=== PATIENT | female | born 1960 | race Caucasian/White ===

== ENCOUNTER 2016-12-25 11:10 | Day surgery (SDCO) | payer OTHER ==
[~2016-12-25] VITALS: Ht 155 cm; Wt 84.0 kg
[2016-12-25 12:39] LABS: HCT 38.6 % (37.0-47.0); MCH 26.3 pg (25.0-31.0); MCHC 33.7 g/dL (32.0-36.0); MPV 8.8 fL (6.0-9.5); RBC 4.95 M/uL (4.20-5.40); RDW 14.7 % (11.5-14.0); WBC 6.3 K/uL (4.0-10.5)
[2016-12-25 13:01] LABS: ALBUMIN 4.1 g/dL (3.5-5.0); BILIRUBIN - TOTAL 1.1 mg/dL (0.1-1.0); CREATININE 0.5 mg/dL (0.5-1.0); GLOBULIN (CALCULATION) 2.9 g/dL (2.2-4.2); POTASSIUM 3.9 mmol/L (3.5-5.1)
[2016-12-27] MEDS ORDERED: LORTAB 10 MG-3473 ML PO (10:35)
[2016-12-27] MEDS ORDERED: COLESTID 1GM TAB1 GM PO (10:59)
[2016-12-27] MEDS ORDERED: PROZAC20 MG PO (10:59)
== END 2016-12-27 12:11 | disposition home or self-care (01) ==
LOC: FAS 11:10 → EDSTATUS 12:15 → FAS 12:15 → FMS 15:30
PROVIDERS: ADMIT Surgery
DX: K21.9 Gastro-esophageal reflux disease without esophagitis (principal); K58.9 Irritable bowel syndrome, unspecified; F41.9 Anxiety disorder, unspecified; M19.90 Unspecified osteoarthritis, unspecified site; Z88.8 Allergy status to other drugs, medicaments and biological substances; Z90.710 Acquired absence of both cervix and uterus; Z90.49 Acquired absence of other specified parts of digestive tract; Z82.49 Family history of ischemic heart disease and other diseases of the circulatory system; Z83.49 Family history of other endocrine, nutritional and metabolic diseases; Z79.899 Other long term (current) drug therapy; Z98.890 Other specified postprocedural states
CPT/HCPCS: 36415; 80053; 86850; 86900; 86901; 93005; 94010; 94762; G0378; J0131; J1100; J1170; J2405; J2704; J3010